=== PATIENT | male | born 1990 | race Caucasian/White ===

== ENCOUNTER 2024-06-19 19:32 | Emergency (ER) | payer OTHER, SELFPAY ==
--- NOTE | ~2024-06-19 | XR_ITS ---
HISTORY: machine fell on foot, bruising noted COMPARISON: None TECHNIQUE: 3 views of the right foot were performed. FINDINGS: No acute fracture or dislocation is appreciated. No significant degenerative disease is noted. The base of the fifth metatarsal is intact. No calcaneal spur is noted. Trace soft tissue swelling about the great toe is present.. IMPRESSION: Trace soft tissue swelling, without acute fracture. Reviewed, dictated and finalized at location A.
[2024-06-19 20:04] VITALS: BP 117/73; PULSE 77; RESP 16; TEMP 36.9; O2SAT 100
--- OUTSIDE RECORDS SUMMARY | 2024-06-19 22:14 | XMS_ITS | Referral Summary ---
Author Organization [facility] Office Building [address] [place] [address] Care Team Providers Care Mosaic Tile Maker Name Role Phone No, Physician Primary Care Provider [phone] Kevin Romo MD Unavailable Encounters Date Type Department Care Team Description 06/14/2024 9:15 AM CDT - 06/14/2024 11:59 PM CDT Hospital Encounter [facility] [address] [place] [address] Kevin Romo MD Chronic pain syndrome Discharge Disposition: Discharge to home or self care 06/14/2024 9:26 AM CDT - 06/14/2024 11:59 PM CDT Hospital Encounter [facility] [address] [place] [address] Kevin Romo MD Chronic pain syndrome Discharge Disposition: Discharge to home or self care 06/14/2024 9:22 AM CDT - 06/14/2024 11:59 PM CDT Hospital Encounter [facility] [address] [place] [address] Kevin Romo MD Chronic pain syndrome Discharge Disposition: Discharge to home or self care 06/14/2024 7:30 AM CDT - 06/14/2024 11:59 PM CDT Hospital Encounter [facility] [address] [place] [address] Kevin Romo MD Thoracic spine pain (Primary Dx); Chronic pain syndrome; Cervicalgia; Chronic bilateral low back pain without sciatica Discharge Disposition: Discharge to home or self care from Last 3 Months Allergies No known active allergies Medications ibuprofen 200 mg tab/cap Take 3 tablet/capsu le (600 mg total) by mouth every 6 (six) hours as needed for pain Active acetaminophen-c affeine 500-65 mg tablet Take by mouth Active diazePAM (VALIUM) 10 mg tablet Take one tablet 45 minutes prior to procedure, do not drive, must have taxi driver supervisor. 1 tablet 06/14/2024 Active Active Problems Problem Noted Date Diagnosed Date Cervicalgia 06/14/2024 Thoracic spine pain 06/14/2024 Chronic pain syndrome 06/14/2024 Chronic bilateral low back pain without sciatica 12/11/2004 Social History Tobacco Use Types Packs/Day Years Used Date Smoking Tobacco: Never Passive Smoke Exposure: Never Smokeless Tobacco: Never Tobacco Cessation:Counseling Given: Not Answered Sex and Gender Information Value Date Recorded Sex Assigned at Not on file Legal Sex Male 1:44 PM CDT Gender Identity Male 05/29/2024 1:47 PM CDT Sexual Orientation Not on file Last Filed Vital Signs Vital Sign Reading Time Taken Comments Blood Pressure 124/73 06/14/2024 7:59 AM CDT Pulse 79 06/14/2024 7:59 AM CDT Temperature - - Respiratory Rate 18 06/14/2024 7:59 AM CDT Oxygen Saturation 100% 06/14/2024 7:59 AM CDT Inhaled Oxygen Concentration - - Weight 71.8 kg (158 lb 6.4 oz) 06/14/2024 7:59 A M CDT Height 170.2 cm (5' 7 ) 06/14/2024 7:59 AM CDT Body Mass Index 24.81 06/14/2024 7:59 AM CDT Plan of Treatment Not on file Procedures Procedure Name Priority Date/Time Associated Diagnosis Comments XR SPINE LUMBAR COMPLETE 4 OR MORE VIEWS Schedule Routine, Read Routine (OP Routine) 06/14/2024 9:48 AM CDT Chronic pain syndrome XR SPINE CERVICAL COMPLETE 4 OR 5 VW Schedule Routine, Read Routine (OP Routine) 06/14/2024 9:47 AM CDT Chronic pain syndrome XR SPINE THORACIC 3 VIEWS Schedule Routine, Read Routine (OP Routine) 06/14/2024 9:47 AM CDT Chronic pain syndrome from Last 3 Months Results * X-ray lumbar spine complete 4+ views (06/14/2024 9:48 AM CDT) Anatomical Region Laterality Modality Spine N/A Computed Radiogr aphy 06/14/2024 9:49 AM CDT Impressions 06/14/2024 9:49 AM CDT Spondylolisthesis L5-S1. Constipation Electronically signed by: Brian Rios M.D. Narrative 06/14/2024 9:49 AM CDT EXAMINATION: XR SPINE LUMBAR 4 OR MORE VIEWS HISTORY: Chronic pain FINDINGS: There is a grade 1 out of 3 spondylolisthesis of L5 on S1 associated with pars defects. Mild narrowing of the L5-S1 disc space is seen. Remaining alignment is normal. Remaining disc space heights normal. Moderate constipation. Procedure Note Brian Rios MD - 06/14/2024 EXAMINATION: XR SPINE LUMBAR 4 OR MORE VIEWS HISTORY: Chronic pain FINDINGS: There is a grade 1 out of 3 spondylolisthesis of L5 on S1 associated with pars defects. Mild narrowing of the L5-S1 disc space is seen. Remaining alignment is normal. Remaining disc space heights normal. Moderate constipation. IMPRESSION: Spondylolisthesis L5-S1. Constipation Electronically signed by: Brian Rios M.D. Kevin Romo MD IMG XR PROCEDURES Fin al Result * X-ray cervical spine complete 4 or 5 vw (06/14/2024 9:47 AM CDT) Anatomical Region Laterality Modality Spine N/A Computed Radiogr aphy 06/14/2024 9:48 AM CDT Impressions 06/14/2024 9:48 AM CDT Normal study. Electronically signed by: Brian Rios M.D. Narrative 06/14/2024 9:48 AM CDT EXAMINATION: XR SPINE CERVICAL COMPLETE 4 OR 5 VW HISTORY: Chronic pain FINDINGS: There is normal bone alignment without fracture or dislocation. No significant degenerative changes. No destructive bone lesions are seen. No soft tissue abnormalities are identified. Procedure Note Brian Rios MD - 06/14/2024 EXAMINATION: XR SPINE CERVICAL COMPLETE 4 OR 5 VW HISTORY: Chronic pain FINDINGS: There is normal bone alignment without fracture or dislocation. No significant degenerative changes. No destructive bone lesions are seen. No soft tissue abnormalities are identified. IMPRESSION: Normal study. Electronically signed by: Brian Rios M.D. Kevin Romo MD IMG XR PROCEDURES Fin al Result * X-ray thoracic spine 3 views (06/14/2024 9:47 AM CDT) Anatomical Region Laterality Modality Spine N/A Computed Radiogr aphy 06/14/2024 9:47 AM CDT Impressions 06/14/2024 9:47 AM CDT Normal study. Electronically signed by: Brian Rios M.D. Narrative 06/14/2024 9:47 AM CDT EXAMINATION: XR SPINE THORACIC 3 VIEWS HISTORY: Back pain FINDINGS: There is normal bone alignment without fracture or dislocation. No significant degenerative changes. No destructive bone lesions are seen. No soft tissue abnormalities are identified. Procedure Note Brian Rios MD - 06/14/2024 EXAMINATION: XR SPINE THORACIC 3 VIEWS HISTORY: Back pain FINDINGS: There is normal bone alignment without fracture or dislocation. No significant degenerative changes. No destructive bone lesions are seen. No soft tissue abnormalities are identified. IMPRESSION: Normal study. Electronically signed by: Brian Rios M.D. Kevin Romo MD IMG XR PROCEDURES Fin al Result from Last 3 Months Insurance [facility] CHOICE PLUS [facility] HMO/PPO Address: [address] [address] [place] [id number] [facility] CHOICE PLUS [facility] HMO/PPO Address: [place] [address] Care Teams Mosaic Tile Maker Relationship Specialty Start Date End Date No, Physician PCP - General 06/14/24 [place] [id number] [facility] [address] [place] [id number] Consulting Physician Pain Management 06/14/24
--- OUTSIDE RECORDS SUMMARY | 2024-06-19 22:14 | XMS_ITS | Encounter Summary ---
Author Organization [employer] Address 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 Gender Identity Not on file Sexual Orientation Not on file documented as of this encounter Last Filed Vital Signs Vital Sign Reading Time Taken Comments Blood Pressure 120/68 01/06/2005 3:30 PM CDT Pulse 80 01/06/2005 3:30 PM CDT Temperature 35.8 C (96.5 F) 01/06/2005 3:30 PM CDT Respiratory Rate 16 01/06/2005 3:30 PM CDT Oxygen Saturation - - Inhaled Oxygen Concentration - - Weight 68.9 kg (152 lb) 01/06/2005 3:30 PM CDT Height 168.9 cm (5' 6.5 ) 01/06/2005 3:30 PM CDT Body Mass Index 24.17 01/06/2005 3:30 PM CDT Body Mass Index Percentile 84.78% 01/06/2005 3:3 0 PM CDT Growth Chart: CDC (Boys, 2-2 0 Years) documented in this encounter Plan of Treatment Not on file documented as of this encounter Visit Diagnoses Diagnosis Lumbago- Primary documented in this encounter Care Teams Team Foreman Relationship Specialty Start Date End Date Rocael Prater MD [address] [facility] [place] [phone] PCP - General Internal Medicine 04/13/16 documented as of this encounter
--- OUTSIDE RECORDS SUMMARY | 2024-06-19 22:14 | XMS_ITS | Encounter Summary ---
Author Organization [employer] [facility] Address [address] [place] [address] Care Team Providers Care Anglesmith Name Role Phone Rocael Prater MD Primary Care Provider [phone]- [phone] Encounter Details Date Type Department Care Team (Late st Contact Info) Description 01/06/2005 Outpatient Historical [address] 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
--- OUTSIDE RECORDS SUMMARY | 2024-06-19 22:14 | XMS_ITS | Encounter Summary ---
Author Organization [facility] Address 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
--- OUTSIDE RECORDS SUMMARY | 2024-06-19 22:14 | XMS_ITS | Encounter Summary ---
Author Organization [employer] [facility] Address [address] [place] [address] Care Team Providers Care Director Of Diversity And Inclusion Name Role Phone Rocael Prater MD Primary Care Provider [phone]- [phone] Encounter Details Date Type Department Care Team (Late st Contact Info) Description 04/09/2004 Outpatient Historical [address] [place] [address] Everardo Paula MD [address] [place] [address] Social History Tobacco Use Types Packs/Day Years Used Date Smoking Tobacco: Never Assessed Sex and Gender Information Value Date Recorded Sex Assigned at Not on file Legal Sex Male 5:25 AM CLAY MIXER Gender Identity Not on file Sexual Orientation Not on file documented as of this encounter Plan of Treatment Not on file documented as of this encounter Visit Diagnoses Not on filedocumented in this encounter Care Teams Director Of Diversity And Inclusion Relationship Specialty Start Date End Date Rocael Pratre MD [address] [facility] [place] [phone] PCP - General Internal Medicine 04/13/16 documented as of this encounter
--- OUTSIDE RECORDS SUMMARY | 2024-06-19 22:14 | XMS_ITS | Clinical Summary ---
Author Organization [facility] Office Building [address] [place] [address] Care Team Providers Care Windows Systems Administrator Name Role Phone No, Physician Primary Care Provider [phone] Kevin Romo MD Unavailable [phone] Allergies No known active allergies Medications ibuprofen 200 mg tab/cap Take 3 tablet/capsu le (600 mg total) by mouth every 6 (six) hours as needed for pain Active acetaminophen-c affeine 500-65 mg tablet Take by mouth Active diazePAM (VALIUM) 10 mg tablet Take one tablet 45 minutes prior to procedure, do not drive, must have local delivery driver. 1 tablet 06/14/2024 Active Active Problems Problem Noted Date Diagnosed Date Cervicalgia 06/14/2024 Thoracic spine pain 06/14/2024 Chronic pain syndrome 06/14/2024 Chronic bilateral low back pain without sciatica 12/11/2004 Encounters Date Type Department Care Team Description 06/14/2024 9:26 AM CDT - 06/14/2024 11:59 PM CDT Hospital Encounter [facility] [address] [place] [address] Kevin Romo MD Chronic pain syndrome Discharge Disposition: Discharge to home or self care 06/14/2024 9:22 AM CDT - 06/14/2024 11:59 PM CDT Hospital Encounter [facility] [address] [place] [address] Kevin Romo MD Chronic pain syndrome Discharge Disposition: Discharge to home or self care 06/14/2024 9:15 AM CDT - 06/14/2024 11:59 PM CDT Hospital Encounter [facility] [address] [place] [address] Kevin Romo MD Chronic pain syndrome Discharge Disposition: Discharge to home or self care 06/14/2024 7:30 AM CDT - 06/14/2024 11:59 PM CDT Hospital Encounter [facility] [address] [place] [address] Kevin Romo MD Thoracic spine pain (Primary Dx); Chronic pain syndrome; Cervicalgia; Chronic bilateral low back pain without sciatica Discharge Disposition: Discharge to home or self care from Last 3 Months Medical History Medical History Date Comments Lumbosacral facet joint syndrome Family History Medical History Relation Name Comments No Known Problems Father Brad No Known Problems Mother Ngozi Relation Name Status Comments Father Brad Alive Mother Ngozi Alive Social History Tobacco Use Types Packs/Day Years Used Date Smoking Tobacco: Never Passive Smoke Exposure: Never Smokeless Tobacco: Never Tobacco Cessation:Counseling Given: Not Answered Sex and Gender Information Value Date Recorded Sex Assigned at Not on file Legal Sex Male 1:44 PM CDT Gender Identity Male 05/29/2024 1:47 PM CDT Sexual Orientation Not on file Obstetrics History Last Filed Vital Signs Vital Sign Reading [...] 06/14/2024 7:59 AM CDT Plan of Treatment Health Maintenance Due Date Last Done Comments Depression Screening 1988 Hepatitis C Screening 1988 DTaP/Tdap/Td Vaccine (1 - Tdap) 12/22/1999 Varicella Vaccines (1 of 2 - 13+ 2-dose series) 2001 Hepatitis B Screening 2006 Regular Well Visit/Exam 18-64 2006 Influenza Vaccine (Season Ended) 2024 11/25/19 18 HPV Vaccines Aged Out No longer eligi ble based on patient's age to complete this topic Pneumococcal vaccine <65 Aged Out No longer eligible based on patient's age to complete this topic Procedures Procedure Name Priority Date/Time Associated Diagnosis [...] by: Brian Rios M.D. Kevin Romo MD [facility] XR PROCEDURES Fin al Result * X-ray [...] by: Brian Rios M.D. Kevin Romo MD [facility] XR PROCEDURES Fin al Result * X-ray [...] al Result from Last 3 Months Insurance [facility]/PPO Address: [place] [address] CHOICE [facility] H[facility]/PPO Address: [address] [address] [place] [id number] Care Teams Windows Systems Administrator Relationship Specialty Start Date End Date No, Physician PCP - General 06/14/24 [place] [address] [facility] [address] [place] [address] Consulting Physician Pain Management 06/14/24
--- OUTSIDE RECORDS SUMMARY | 2024-06-19 22:14 | XMS_ITS | Clinical Summary ---
Author Organization [facility] Address [address] [place], [place] [address] Care Team Providers Care Cad Engineer Name Role Phone Rocael Prater MD Primary Care Provider [phone]- [phone] Allergies Active Allergy Reactions Criticality Noted Date Comments No Known Allergies 10/09/2004 Medications sertraline (ZOLOFT) 50 mg tabletIndicatio ns:Generalized anxiety disorder Take 1 Tablet (50 mg) by mouth daily. 90 Tablet 3 06/10/2018 Active piroxicam (FELDENE) 10 mg CapsuleIndicati ons:Pain in both upper arms Take 2 Capsules (20 mg) by mouth daily. 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 PATTERNMAKER PRESSURE CAST Gender Identity Not on file Sexual Orientation Not on file Last Filed Vital Signs Vital Sign Reading Time Taken Comments Blood Pressure 110/72 06/10/2018 2:41 PM CDT Pulse 74 06/10/2018 2:41 PM CDT Temperature 36.7 C (98 F) 06/29/2017 12:33 PM CDT Respiratory Rate 16 01/06/2005 3:30 PM CDT Oxygen Saturation 98% 06/10/2018 2:41 PM CDT Inhaled Oxygen Concentration - - Weight 71.2 kg (157 lb) 06/10/2018 2:41 PM CDT Height 167.6 cm (5' 6 ) 06/10/2018 2:41 PM CDT Body Mass Index 25.34 06/10/2018 2:41 PM CDT Plan of Treatment Health Maintenance Due Date Last Done Comments DTAP/TDAP/TD VACCINES (1 - Tdap) 12/22/2007 HEPATITIS B VACCINES (1 of 3 - 19+ 3-dose series) 12/22/2007 INFLUENZA VACCINE (#1) 2023 Preventative Visit- Commercial 03/15/2024 04/09/2004 HPV VACCINES Aged Out No longer eligi ble based on patient's age to complete this topic Insurance Care Teams Cad Engineer Relationship Specialty Start Date End Date Rocael Prater MD [address] [place] [phone] PCP - General Internal Medicine 04/13/16
--- OUTSIDE RECORDS SUMMARY | 2024-06-19 22:14 | XMS_ITS | Encounter Summary ---
Author Organization [employer] [facility] Address [address] [place] [address] Care Team Providers Care Can Closing Machine Tender Name Role Phone Rocael Prater MD Primary Care Provider [phone]- [phone] Encounter Details Date Type Department Care Team (Late st Contact Info) Description 12/11/2004 Outpatient Historical [address] 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
--- OUTSIDE RECORDS SUMMARY | 2024-06-19 22:14 | XMS_ITS | Encounter Summary ---
Author Organization [employer] [facility] Address [address] [place] [address] Care Team Providers Care Helicopter Crew Chief Name Role Phone Rocael Prater MD Primary Care Provider [phone]- [phone] Encounter Details Date Type Department Care Team (Late st Contact Info) Description 05/16/2004 Outpatient Historical [address] 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
--- NOTE | 2024-06-19 23:01 | ED.LOWEXIN ---
HPI - Extremity Injury (Lower) General Chief Complaint: Extremity Injury, Lower Stated Complaint: R big toe injury Time Seen by Provider: 06/19/24 21:53 Source: patient Mode of arrival: ambulatory Limitations: no limitations History of Present Illness HPI Narrative: Patient is a 33-year-old male who presents the ED with report of right 1st toe pain. Patient reports he was at work today when a large piece of machine equipment fell on to the patient's foot/1st toe. He complains of pain to the 1st toe, abrasion to distal tip of toe past the nail, pressure and bleeding under the nail. He is able to ambulate, but has pain with this. No other injuries. Tetanus unknown. Related Data Allergies Allergy/AdvReac Type Severity Reaction Status Date / Time No Known Allergies Allergy Verified 06/19/24 19:34 Review of Systems Review of Systems: All systems reviewed & are unremarkable except as noted in HPI. All systems reviewed & are unremarkable except as noted in HPI and below Exam Narrative: GENERAL: Well appearing, well-nourished, non-toxic, in no acute distress. HEAD: Normocephalic, atraumatic. RESPIRATORY: Airway patent, respirations nonlabored CARDIOVASCULAR: Regular rate and rhythm. Pedal pulses intact and easily palpable. MUSCULOSKELETAL: Moves all extremities. Contusion/swelling to right 1st toe with partial skin avulsion of skin just distal from the nail plate. No deeper lacerations or wounds. Nail plate and cuticle are intact. There is approximately 60% subungual hematoma present. Very significant focal tenderness. No significant tenderness over 1st MTP. Sensation intact. Capillary refill intact. SKIN: Warm, dry, normal color. NEURO: A&O X3. Speech clear. No ataxic movements. PSYCHIATRIC: Appropriate mood and affect. Normal interaction. Course Vital Signs Vital signs: Vital Signs Temperature 98.5 F 06/19/24 20:04 Pulse Rate 77 06/19/24 20:04 Respiratory Rate 16 06/19/24 20:04 Blood Pressure 117/73 06/19/24 20:04 Pulse Oximetry 100 06/19/24 20:04 Oxygen Delivery Room Air 06/19/24 20:04 Temperature 98.5 F 06/19/24 20:04 Pulse Rate 87 06/19/24 23:50 Respiratory Rate 14 06/19/24 23:50 Blood Pressure 117/73 06/19/24 20:04 Pulse Oximetry 99 06/19/24 23:50 Oxygen Delivery Room Air 06/19/24 20:04 Procedures Nail Trephination Nail Trephination #1: Nail Trephination Date: 06/19/24 Nail Trephination Time: 23:01 Time out: Yes Location (toes): first digit Sterile prep: chlorhexidine Method of drainage: nail cautery Procedure successful: Yes Patient tolerated procedure: well and no complications Complications: other (none) MDM - Extremity Injury (Lower) MDM Narrative Medical decision making narrative: X-ray R foot w/o acute fracture. Patient neurovascularly intact. Nail trephination was performed of R 1st toe using cautery with improvement of pressure/pain. Patient's tetanus was unknown, believes it is up to date, declined tetanus in the ED. Discussed wound care, strict return precautions. Patient in agreement with plan. Feels comfortable going home. Discharged in stable condition. Medical Records Attestation: I reviewed the patient's medical records. Imaging Data Attestation: I personally reviewed and interpreted this imaging study as follows: Radiologist's impression: ITS Impressions Foot X-Ray 06/19/24 20:58 IMPRESSION: Trace soft tissue swelling, without acute fracture. Discharge Plan Discharge Clinical Impression: Contusion of toe of right foot Qualifiers: Encounter type: initial encounter Toe: great toe Damage to nail status: with damage Qualified Code(s): S90.211A - Contusion of right great toe with damage to nail, initial encounter Subungual hematoma of great toe of right foot Qualifiers: Encounter type: initial encounter Qualified Code(s): S90.211A - Contusion of right great toe with damage to nail, initial encounter Patient Disposition: Home Condition: Stable Instructions: Antibiotic Form, Subungual Hematoma (ED), Foot Contusion (ED) Additional Instructions: Continue Tylenol and ibuprofen as needed for pain. Recommend antibiotic ointment over toe. Keep toe bandaged whenever working or wearing shoes. Follow-up with your primary care doctor for further evaluation if needed. Return to the ED if you experience worsening or severe pain, recurrent injury, redness extending up toe, fevers, numbness, or any other symptoms of concern. Patient Language: Indonesian Follow-up/Referrals: PHYSICIAN,IT PROGRAMMER ANALYST [Primary Care Provider] - Time of Disposition: 23:39
--- NOTE | 2024-06-19 23:01 | PC.NURSE ---
edp at bedside for cautery of toe nail
[2024-06-19 23:50] VITALS: PULSE 87; RESP 14; O2SAT 99
== END 2024-06-19 23:51 | disposition home or self-care (01) ==
PROVIDERS: Emergency Provider Physician Assistant
DX: S90.211A Contusion of right great toe with damage to nail, initial encounter (principal); W20.8XXA Other cause of strike by thrown, projected or falling object, initial encounter
CPT/HCPCS: 11740; 73630; 99283